=== PATIENT | female | born 1995 | race Caucasian/White ===

== ENCOUNTER 2017-08-22 17:47 | Emergency (ER) | payer OTHER ==
[~2017-08-22] VITALS: Ht 157.5 cm; Wt 50.0 kg
[~2017-08-22 17:47] MED LIST: IBUP-232 PO; SENN1TAB PO
[2017-08-22 17:49] VITALS: BP 122/86; PULSE 84; RESP 16; TEMP 98.6; O2SAT 99
[2017-08-22] MEDS ORDERED: PROP20TA3 PO (18:20)
[2017-08-22] MEDS ORDERED: MUPI2%T TOPICAL (19:09)
--- NOTE | 2017-08-22 19:10 | PD ---
HPI Chief Complaint: Skin Problem Time Seen by Provider: 18:49 Travel History International Travel<30 days: No Contact w/Intl Traveler<30days: No Traveled to known affect area: No History of Present Illness HPI This is a 22-year-old female who presents to the emergency department with several days of an infection in her right fourth finger reporting moderate severity pain, constant, burning associated with some flaking of her skin and intermittent episodes of pus coming from her finger. She does have a history of eczema and initially she thought that's what it was so she was putting hydrocortisone cream on it but it was getting worse. PFSH Past Medical History Anxiety: Yes (HX OF ATTACKS NO MED PRESCRIBED) Cardiovascular Problems: Yes (MYTRAL VALVE PROLAPSE) Developmental Delay: No Diminished Hearing: No Immunizations Current: Yes ?: Not LMP: 07/19/17 Past Surgical History Section: Yes Social History Alcohol Use: No Tobacco Use: No Substance Use: No Allergies-Medications (Allergen,Severity, Reaction): Coded Allergies: Sulfa (Sulfonamide Antibiotics) (Unverified Allergy, Severe, 08/22/17) amoxicillin (Unverified Allergy, Severe, 08/22/17) butorphanol (Unverified Allergy, Severe, HALLUCINATIONS, 08/22/17) hazelnut (Unverified Allergy, Severe, 08/22/17) penicillin G (Unverified Allergy, Severe, 08/22/17) pineapple (Unverified Allergy, Severe, 08/22/17) pseudoephedrine (Unverified Allergy, Severe, 08/22/17) Reported Meds & Prescriptions Reported Meds & Active Scripts Active Ibuprofen 600 Mg Tab 600 Mg PO Q6H PRN Senna Plus 8.6-50 mg (Sennosides-Docusate Sodium) 1 Tab Tab 2 Tab PO Q12H PRN Reported Propranolol (Propranolol HCl) 20 Mg Tab 20 Mg PO DAILY Review of Systems General / Constitutional: No: Fever, Chills Cardiovascular: No: Chest Pain or Discomfort Respiratory: No: Shortness of Breath Physical Exam Narrative GENERAL: Well-appearing, no acute distress, nontoxic SKIN: Scaly skin and erythema involving the right forth finger around the nailbed with no induration or purulent drainage ending distal to the DIP HEAD: Atraumatic. Normocephalic. ENT: No nasal bleeding or discharge. Moist mucous membranes MUSCULOSKELETAL: No obvious deformities. No clubbing. No cyanosis. No edema. NEUROLOGICAL: Awake and alert. No obvious cranial nerve deficits. Motor grossly within normal limits. Normal speech. PSYCHIATRIC: Appropriate mood and affect; insight and judgment normal. Data Data Last Documented VS Vital Signs Date Time Temp Pulse Resp B/P (MAP) Pulse Ox O2 Delivery O2 Flow Rate FiO2 08/22/17 17:49 98.6 84 16 122/86 (98) 99 Room Air MDM Medical Decision Making Medical Screen Exam Complete: Yes Emergency Medical Condition: Yes Differential Diagnosis Paronychia, eczema, herpetic balaji Narrative Course This is a 22-year-old female who presents to the emergency department with redness, burning and scaling skin of her right fourth finger. She says she's had purulent drainage from it. I don't appreciate any area of fluctuance or induration currently. I suspect she had a period here which likely drained. She has quite a bit of scaly skin. I suspect she had a staph infection. Pt. will be prescribed bactroban and was advised to apply warm compresses to the area 4 times a day. I don't think she requires oral antibiotic therapy at this time. Diagnosis Primary Impression: Finger infection Patient Instructions: General Instructions Additional Instructions: If you develop increasing swelling, pain or drainage from your finger worse it' s extending down your finger into her palm return to the emergency room immediately. If he develops fevers or chills return to the emergency room immediately. Apply topical antibiotic twice daily and apply a warm washcloth to your finger 4 times a day for 15 minutes. Med/Other Pt SpecificInfo: Prescription(s) given Scripts Mupirocin Topical (Bactroban Topical) 22 Gm Cream 1 APPLIC TOPICAL BID for Mgmt Bacterial Infection, #1 TUBE 0 Refills Prov: Sanam Win MD 08/22/17 Disposition: 01 DISCHARGE HOME Condition: Stable Sanam Win MD Aug 22, 2017 19:10
== END 2017-08-22 19:24 | disposition home or self-care (01) ==
LOC: NEPD 17:47
DX: L08.9 Local infection of the skin and subcutaneous tissue, unspecified (principal); Z87.2 Personal history of diseases of the skin and subcutaneous tissue; Z86.59 Personal history of other mental and behavioral disorders; Z86.79 Personal history of other diseases of the circulatory system
CPT/HCPCS: 99283